=== PATIENT | female | born 1975 | race Two or more races ===

== ENCOUNTER 2016-05-03 19:17 | Emergency (ER) | payer SELFPAY ==
--- NOTE | 2016-05-03 19:41 | ER Document Report ---
ED Medical Screen (RME) - General Stated Complaint: PAINFUL URINATION Mode of Arrival: Ambulatory Information source: Patient Notes: Patient complains of chills and dysuria that started around 4 PM today. Patient reports urinary frequency. hx: None I have greeted and performed a rapid initial assessment of this patient. A comprehensive ED assessment and evaluation of the patient, analysis of test results and completion of the medical decision making process will be conducted by additional ED providers. - Related Data Allergies/Adverse Reactions: phenazopyridine [From Pyridium] Allergy (Verified 05/03/16 19:40) Sulfa (Sulfonamide Antibiotics) Allergy (Verified 05/03/16 19:40) Past Medical History Psychiatric Medical History: Reports: Hx Depression - Immunizations Hx Diphtheria, Pertussis, Tetanus Vaccination: Yes Physical Exam - Vital signs Vitals: Temp Pulse Resp BP Pulse Ox 98.5 F 74 16 128/84 H 100 05/03/16 19:29 05/03/16 19:29 05/03/16 19:29 05/03/16 19:29 05/03/16 19:29 - Abdominal Tenderness: Tender - Suprapubic Course - Vital Signs Vital signs: Temp Pulse Resp BP Pulse Ox 98.5 F 74 16 128/84 H 100 05/03/16 19:29 05/03/16 19:29 05/03/16 19:29 05/03/16 19:29 05/03/16 19:29
[2016-05-03 20:31] LABS: APPEARANCE,URINE SLIGHTLY-CLOUDY; BILIRUBIN,URINE NEGATIVE (NEGATIVE); GLUCOSE, URINE NEGATIVE (NEGATIVE); KETONES,URINE NEGATIVE (NEGATIVE); LEUKOCYTE ESTERASE,URINE LARGE (NEGATIVE); NITRITE,URINE NEGATIVE (NEGATIVE); PROTEIN,URINE NEGATIVE (NEGATIVE); URINE SPECIFIC GRAVITY 1.001; UROBILINOGEN,URINE NEGATIVE mg/dL (<2.0)
[2016-05-04] MEDS ORDERED: CIPROFLOXACIN HCL 500 MG TABLET PO ONE (00:14)
--- NOTE | 2016-05-04 00:21 | ER Document Report ---
ED General - General Chief Complaint: Urinary Problem Stated Complaint: PAINFUL URINATION Mode of Arrival: Ambulatory Notes: Patient is 40-year-old female presents with complaint of dysuria. No vomiting. No diarrhea. Some mild chills. Symptoms started the last 24 hours. No severe flank pain. No severe back pain. She does not get urinary tract infections on a frequent basis. No other complaints this time. She's allergic to Bactrim and Pyridium. TRAVEL OUTSIDE OF THE [place] IN LAST 30 DAYS: No - Related Data Allergies/Adverse Reactions: phenazopyridine [From Pyridium] Allergy (Verified 05/03/16 19:40) Sulfa (Sulfonamide Antibiotics) Allergy (Verified 05/03/16 19:40) Past Medical History - General Information source: Patient - Social History Smoking Status: Never Smoker Chew tobacco use (# tins/day): No Frequency of alcohol use: Occasional Drug Abuse: None Family History: Reviewed & Not Pertinent Renal/ Medical History: Denies: Hx Peritoneal Dialysis Psychiatric Medical History: Reports: Hx Depression - Immunizations Hx Diphtheria, Pertussis, Tetanus Vaccination: Yes Review of Systems - Review of Systems Notes: My Normal Review Basic REVIEW OF SYSTEMS: CONSTITUTIONAL : Some chills EENT: Denies eye, ear, throat, or mouth pain or symptoms. Denies nasal or sinus congestion. RESPIRATORY: Denies cough, cold, or chest congestion. Denies shortness of breath, difficulty breathing, or wheezing. GASTROINTESTINAL: Suprapubic pain. Denies nausea, vomiting, or diarrhea. Denies constipation. Last BM: GENITOURINARY: Dysuria and urinary frequency. FEMALE GENITOURINARY: Denies vaginal bleeding, abnormal or irregular periods. MUSCULOSKELETAL: Denies neck or back pain or joint pain or swelling. SKIN: Denies rash or skin lesions. NEUROLOGICAL: Denies altered mental status or loss of consciousness. Denies headache. Denies weakness or paralysis or loss of use of either side. Denies problems with gait or speech. Denies sensory or motor loss. ALL OTHER SYSTEMS REVIEWED AND NEGATIVE. Physical Exam - Vital signs Vitals: Temp Pulse Resp BP Pulse Ox 98.5 F 74 16 128/84 H 100 05/03/16 19:29 05/03/16 19:29 05/03/16 19:29 05/03/16 19:29 05/03/16 19:29 - Notes Notes: General Appearance: Well nourished, alert, cooperative, no acute distress, no obvious discomfort. Well-appearing. Vitals: reviewed, See vital signs table. Abdomen: Normal BS, soft, No rigidity, mild suprapubic pain just left to the suprapubic region to palpation. , No guarding, no rebound, no abdominal masses, no organomegaly Back: Minimal tenderness over the left costovertebral angle to palpation. Skin: warm, dry, appropriate color, no rash Neuro: speech clear, oriented x 3, normal affect, responds appropriately to questions. Course - Vital Signs Vital signs: Temp Pulse Resp BP Pulse Ox 98.5 F 74 16 128/84 H 100 05/03/16 19:29 05/03/16 19:29 05/03/16 19:29 05/03/16 19:29 05/03/16 19:29 - Laboratory Laboratory results interpreted by me: 05/03/16 20:10 Urine Blood LARGE H Ur Leukocyte Esterase LARGE H - Transfer of Care Notes: 05/04/16 00:18 Patient looks very well. She's not septic or toxic appearing. She does not have symptoms consistent with kidney stone. Symptoms very consistent with UTI and her urinalysis reflects that. We'll place her on Cipro. We'll send her urine for culture. I encouraged to return to ER she has recurrent fevers, vomiting, and pain, or if she feels unwell. Patient agrees with plan and she will be discharged home. Dictation of this chart was performed using voice recognition software; therefore, there may be some unintended grammatical errors. Discharge - Discharge Clinical Impression: UTI (urinary tract infection) Qualifiers: Urinary tract infection type: site unspecified Hematuria presence: with hematuria Qualified Code(s): N39.0 - Urinary tract infection, site not specified ; R31.9 - Hematuria, unspecified Condition: Good Disposition: HOME, SELF-CARE Additional Instructions: URINARY TRACT INFECTION: Your evaluation indicates that you have a urinary tract infection. This is due to germs growing in the bladder. This is a common problem. This infection usually responds quickly to antibiotics. Your antibiotic should be taken exactly as prescribed. Drink plenty of fluids -- three to four quarts a day. Occasionally, a bladder anesthetic will be prescribed to help stop the feeling of urgency until the antibiotic has a chance to clear the infection. This may cause your urine to be dark orange. Certain urine infections require a culture. If the doctor obtained a culture, the results will be back in two days. You should call to see if a change in treatment is needed. A repeat urinalysis after you finish treatment is often recommended. The physician will let you know if further testing is required. Call the doctor if you develop fever, chills, flank pain, inability to urinate, or blood in the urine. ANTIBIOTIC THERAPY: You have been given an antibiotic prescription. It's important that you take all the medication, unless instructed otherwise by your physician. Failure to complete the entire course can result in relapse of your condition. Common side effects of antibiotics include nausea, intestinal cramping, or diarrhea. Women may develop vaginal yeast infections, and babies can get yeast (thrush) in the mouth following the use of antibiotics. Contact your physician if you develop significant side effects from this medication. Allergy to this antibiotic can result in hives, wheezing, faintness, or itching. If symptoms of allergy occur, stop the medication and call the doctor. CIPROFLOXACIN: You have been given an antibacterial agent, ciprofloxacin (Cipro). This medicine is not related to the penicillins, sulfas, cephalosporins, or tetracyclines. It is often given to patients who are allergic to these drugs. It has been chosen for you either because other drugs are not appropriate, or because of the nature of your problem. Cipro should not be taken with antacids, as these can decrease its effectiveness. It can be taken without regard to meals. CIPRO SHOULD NOT BE TAKEN BY CHILDREN, NURSING WOMEN, OR WOMEN. Although Cipro is usually well-tolerated, common side effects can include nausea and diarrhea. Contact your doctor if you experience any unusual symptoms while on this medication, such as joint pain or swelling, shortness of breath, wheezing, faintness, or hives. FOLLOW-UP CARE: If you have been referred to a physician for follow-up care, call the physician s office for an appointment as you were instructed or within the next two days. If you experience worsening or a significant change in your symptoms, notify the physician immediately or return to the Emergency Department at any time for re-evaluation. Please return to ER immediately if you have fevers, vomiting, significant pain in the flank or lower abdomen, or if you feel unwell. Prescriptions: Ciprofloxacin HCl [Cipro 500 mg Tablet] 500 mg PO BID #10 tablet Forms: Return to Work
[2016-05-04 00:39] VITALS: BP 130/96
== END 2016-05-04 00:35 | disposition home or self-care (01) ==
LOC: ER 19:17
DX: N39.0 Urinary tract infection, site not specified (principal); R31.9 Hematuria, unspecified; R39.198 Other difficulties with micturition; R30.0 Dysuria
CPT/HCPCS: 81001; 81025; 99283